=== PATIENT | male | born 2000 | race Two or more races ===

== ENCOUNTER 2018-03-01 22:59 | Emergency (ER) | payer OTHER ==
[~2018-03-01] VITALS: Ht 170.2 cm; Wt 68.0 kg
[2018-03-02] MEDS ORDERED: ZOFRAN ODT4 MG PO (05:37)
[2018-03-02] MEDS ORDERED: CIPRO500 MG PO (05:37)
[2018-03-02] MEDS ORDERED: LEVSIN/SL0.125 MG SL (05:37)
== END 2018-03-02 05:48 | disposition home or self-care (01) ==
LOC: ER 22:59
DX: R10.31 Right lower quadrant pain (principal); R50.9 Fever, unspecified